=== PATIENT | male | born 1985 | race Caucasian/White ===

== ENCOUNTER 2022-11-01 08:30 | Emergency (ER) | payer BC, SELFPAY ==
--- NOTE | 2022-11-01 08:37 | ED.WOUNDLAC ---
HPI - Wound/Laceration General Chief Complaint: Wound/Laceration Stated Complaint: Open wound Time Seen by Provider: 11/01/22 08:37 Source: patient Mode of arrival: ambulatory Limitations: no limitations History of Present Illness HPI narrative: Sandro is a 36-year-old male patient presenting to clinic today with complaints of a open wound to his right lower leg near his ankle. States that this wound has been open and not wanting to heal over 1 month. He denies any fever or chills. Does work on his feet a lot. Does have some mild leg swelling with varicose veins. No history of diabetes. Related Data Allergies Allergy/AdvReac Type Severity Reaction Status Date / Time No Known Allergies Allergy Verified 11/01/22 08:46 Review of Systems Review of Systems: Pertinent positives per HPI. Patient denies any fever, chills, rash, headache, visual changes, dizziness, cough, runny nose, sore throat, shortness of breath, chest pain, palpitations, nausea, vomiting, diarrhea, constipation, abdominal pain, or any urinary issues. PMFSH Comments At the time of my signature, I reviewed and agree with the nursing past medical, surgical, social, and family history. There is no relevant family history pertinent to the patient complaint. Exam Narrative: General: Well-developed, well nourished, in no apparent distress Head: Normocephalic, atraumatic. Cardio: Regular rate and rhythm, s1 and s2 normal, no murmur appreciated. Resp: Clear to auscultation bilaterally, no rhonchi, rales, wheezing or rubs. Musculoskeletal: No deformity, mild tender to palpation over the wound with mild redness surrounding the wound without erythema, skin brown pigment changes with trace of swelling and varicose veins to bilateral lower extremities, wound measuring 2 x 1.5 cm, grossly normal range of motion, muscle strength strong and equal, peripheral pulse strong, no cyanosis, normal gait and station Course Course Emergency Course: Portions of this record may have been created with voice recognition software. Level of Care: Express Care Visit Vital Signs Vital signs: Vital signs reviewed MDM - Wound/Laceration MDM Narrative Medical decision making narrative: At the time of visit patient is resting comfortably on the exam table. I suspect patient has a venous ulcer to his right leg. Blood sugar fasting was 116 in the clinic today. Will send in some Silvadene cream for twice daily dressing changes and doxycycline twice daily x1 week. Recommend follow-up with his PCP within a week to determine further evaluation/care. Supportive measures were discussed with the patient he voiced understanding discharge instructions and agrees to treatment plan. Differential Diagnosis Differential diagnosis: Likely other (Venous stasis, venous ulcer, diabetic ulcer, bilateral lower extremity swelling with varicose veins) Discharge Plan Discharge Clinical Impression: Venous ulcer of left leg Patient Disposition: Home, Self-Care Condition: Stable Instructions: Antibiotic Form, Venous Insufficiency (DC) Additional Instructions: Apply Silvadene dressing to the wound twice daily Keep area clean -wash daily with soap and water May take Tylenol/Motrin as needed for pain Take doxycycline as prescribed Follow-up with your PCP in 1 week Prescriptions: New silver sulfadiazine [Silvadene] 1 % cream 1 applic topical BID 7 Days Qty: 50 0RF Rx Instructions: apply a 1.5 mm thickness doxycycline hyclate 100 mg capsule 100 mg PO BID 7 Days Qty: 14 0RF Follow-up/Referrals: UNKNOWN,DOCTOR [Non-Staff] - Time of Disposition: 08:59 Quality NIHSS Nursing Documentation ED NIHSS nursing documentation: reviewed/agree
[2022-11-01 08:50] VITALS: BP 124/85; PULSE 76; RESP 16; TEMP 36.9; O2SAT 100
[2022-11-01 08:59] LABS: Glucose Point of Care 116 mg/dl (65-105)
== END 2022-11-01 09:07 | disposition home or self-care (01) ==
PROVIDERS: Emergency Provider Nurse Practitioner Family
DX: I87.2 Venous insufficiency (chronic) (peripheral) (principal)
CPT/HCPCS: 82948; 99213; G0463